=== PATIENT | male | born 1980 | race Caucasian/White ===

== ENCOUNTER → 2016-12-26 | Outpatient (CLI) | payer BC ==
--- NOTE | 2017-02-12 06:46 | CODING QUERY NO DIAGNOSIS ---
TREATMENT RENDERED WITHOUT A DIAGNOSIS To promote full compliance with coding requirements relating to patient care, physician participation is requested in all cases of assembly riveter uncertainty. Please assist us with providing a diagnosis/symptom for the test(s) below: A diagnosis/symptom was not documented on your Order. A valid diagnosis/symptom is required to bill all insurances. Please remember that we are unable to code a diagnosis of rule out, probable, possible, questionable, or suspected. Tests that require a diagnosis: DOS: 12/26/16 * HIV 4THGEN (HIV,1,2 AB+p24 AG) DIAGNOSIS: * REFERENCE QUEST TEST DIAGNOSIS: * HEPATITIS B SURFACE ANTIGEN DIAGNOSIS: * HEPATITIS C IGG 13 YR OR OLDER DIAGNOSIS: * RAPID PLASMA REAGIN DIAGNOSIS: Provider Signature: Date: Thank you Kayli Sher [employer] Once completed, please kindly fax back to [phone] For questions please call [phone]
== END | disposition home or self-care (01) ==
LOC: C.LAB 09:02
PROVIDERS: ATTEND Obstetrics & Gynecology
DX: Z11.3 Encounter for screening for infections with a predominantly sexual mode of transmission (principal)